=== PATIENT | male | born 1945 | race Hispanic/Latino ===

== ENCOUNTER 2016-06-14 03:00 | Emergency (ER) | payer MEDICARE ==
--- NOTE | 2016-06-14 04:14 | Emergency Department Report ---
HPI - General Time Seen by Provider: 06/14/16 03:06 - [facility] HPI: This is a 70-year-old male with the reported history of CHF and morbid obesity who presents to the emergency department by EMS in cardiac arrest. The patient was last seen alive normal about 1:45 AM this morning by his . Shortly afterwards the patient started complaining of some shortness of breath and became unresponsive. EMS was called and found the patient had agonal breathing. They started to resuscitate the patient, but the patient lost his pulse and went into PEA. ACLS was started with chest compressions, the patient being intubated, and the patient was given ACLS drugs including epinephrine and sodium bicarbonate. He was called the emergency department saying that they were having trouble getting this morbidly obese 500 pound man out of his house and may have to stop ACLS protocol to do so. It is unknown what exactly occurred after that but the patient arrived at [facility] emergency department around 2:45 AM, intubated, receiving chest compressions, and still pulseless and unresponsive. ED Review of Systems ROS: Stated complaint: CARDIAC ARREST Other details as noted in HPI Comment: Unobtainable due to pts medical conditions Physical Exam - Physical Exam Physical Exam: GENERAL: Patient is ill-appearing and unresponsive. HEENT: Normocephalic. Pupils are fixed and dilated. ET tube and collar in place NECK: Supple. Trachea is midline. CHEST/LUNGS: There are no spontaneous lung sounds. HEART/CARDIOVASCULAR: No spontaneous heart sounds. ABDOMEN: Abdomen is soft. Very morbidly obese habitus. SKIN: Skin is cool but dry. NEURO: Patient is unresponsive to verbal, tactile or painful stimuli and does not follow any commands. MUSCULOSKELETAL: There is no deformity. No spontaneous movement of the extremities. There was no palpable pulse to the radial or femoral regions. ED Medical Decision Making - Medical Decision Making With the patient got to the emergency department, he had been pulseless for about 45 minutes at least. He did arrive pulseless and once placed on the monitor he was in PEA. ACLS protocol was immediately started with chest compressions, bag valve ventilation, and epinephrine and sodium bicarbonate given. This continued until the next pulse check in which the patient was once again in PEA. He was given another dose of epinephrine and chest compressions continued. By this time it was close to one hour with the patient had been pulseless. On the next pulse check, patient was still pulseless and his rhythm was PEA. The ultrasound was used to look at the heart which had absolutely no movement or squeeze. Time of was called for 3:01 AM. I just spoke with the patient's and his 2 children regarding the ED course and the patient's aspiration. The says that the patient has been having some shortness of breath and orthopnea over the past few days and that she had been encouraging him to come to the emergency department but he was unwilling to do so at that time. The family was given the opportunity to come back to the emergency department and see the patient and say goodbye. Patient's primary care doctor is a Dr. Galdamez. - Differential Diagnosis CHF, ME, PE, respiratory failure Critical Care Time: Yes Critical care time in (mins) excluding proc time.: 15 Critical care attestation.: If time is entered above; I have spent that time in minutes in the direct care of this critically ill patient, excluding procedure time. Critical care time was spent on this patient and doing his initial evaluation, supervising ACLS protocol, calling the expiration, using the ultrasound to evaluate the cardiac squeeze, and a lengthy discussion with the patient's family. Critical Care Time: 15 mins ED Disposition Clinical Impression: Cardiac arrest Disposition: Is pt being admited?: No Time of Disposition: 04:15
[2016-06-14] MEDS ORDERED: ADRENALIN ONE (14:32)
[2016-06-14] MEDS ORDERED: SODIUM BICARBONATE IV ONE (14:32)
== END 2016-06-14 06:45 ==
LOC: ED 03:00
DX: I46.9 Cardiac arrest, cause unspecified (principal)
CPT/HCPCS: 92950; J0171